=== PATIENT | female | born 1945 | race Caucasian/White ===

== ENCOUNTER 2017-01-03 14:07 | Emergency (ER) | payer MEDICARE, OTHER ==
[~2017-01-03] VITALS: Ht 162.6 cm; Wt 86.2 kg
[2017-01-03] MEDS ORDERED: ATENOLOL (14:23)
[2017-01-03] MEDS ORDERED: IBUPROFEN 200 MG TABLET PO ONE (14:30)
[2017-01-03] MEDS ORDERED: ACETAMINOPHEN 325 MG TABLET PO ONE (14:30)
--- NOTE | 2017-01-03 14:30 | NUR ---
Pt tripped and fell about 3 days ago, striking her head on rocks, denies LOC. Pt c/o frontal area [place]IL[place]X, described as a tight band, 7/10, and slight nausea. Pt denies dizziness, vision change, CP, SOB, no other complaints, no distress noted.
[2017-01-03] MEDS ORDERED: ACETAMINOPHEN ES 500 MG TABLET ONE ×2 (14:45)
[2017-01-03] MEDS ORDERED: IBUPROFEN 600 MG TABLET ONE ×2 (14:45)
--- NOTE | 2017-01-03 15:45 | NUR ---
Pt stated she needed to leave. Left AMA.
== END 2017-01-03 15:45 | disposition left against medical advice (07) ==
LOC: ER 14:07
DX: S06.0X0A Concussion without loss of consciousness, initial encounter (principal); I10 Essential (primary) hypertension; W18.09XA Striking against other object with subsequent fall, initial encounter; Y93.89 Activity, other specified; Y92.9 Unspecified place or not applicable; Y99.9 Unspecified external cause status
CPT/HCPCS: 70450; A4663